=== PATIENT | female | born 1960 | race Caucasian/White ===

== ENCOUNTER 2020-11-30 11:24 | Outpatient (CLI) | payer OTHER, SELFPAY ==
--- NOTE | ~2020-11-30 | XR_ITS ---
EXAMINATION: XR foot LT standing 2V, XR foot RT standing 2V DATE: 11/30/2020 11:48 INDICATION: Rheumatoid arthritis with rheumatoid factor of multiple sites. TECHNIQUE: 1. Dorsoplantar and lateral views of the left foot were obtained. 2. Dorsoplantar and lateral views of the right foot were obtained. COMPARISON: None. FINDINGS: Alignment is normal at both feet. No fractures. Mild polyarticular osteoarthritis characterized by no nuniform joint space narrowing and marginal osteophyte formation at the left first metatarsophalangea l, bilateral fourth tarsal metatarsal and multiple bilateral interphalangeal joints. No erosions to s uggest an inflammatory arthritis such as rheumatoid. Moderate size bilateral plantar calcaneal spurs. Soft tissues are unremarkable. No ankle joint effusions. IMPRESSION: 1. Mild polyarticular osteoarthritis in the bilateral mid and forefeet. Reviewed, dictated and finalized at location A. KETTLE TENDER IMPRESSION: 1. Mild polyarticular osteoarthritis in the bilateral mid and forefeet.
--- NOTE | ~2020-11-30 | XR_ITS ---
EXAMINATION: HAND-SINGH ARTHRITIS 3+VIEWS DATE: 11/30/2020 11:47 INDICATION: Rheumatoid arthritis with rheumatoid factor of multiple sites. TECHNIQUE: Posteroanterior, lateral, and oblique views of the left and of the right hands as well as a ballcatchers view of both hands were obtained. COMPARISON: None. FINDINGS: Alignment is normal at both hands. No fractures. Prominent heterotopic ossicle versus loose osteochon dral body near the tip of the left ulnar styloid process. Symmetric pattern of mild relatively unifor m joint space narrowing at the bilateral fourth metacarpophalangeal joints without significant osteop hytosis but also without cortical erosions which remains equivocal for osteoarthritis versus rheumato id arthritis. There is also asymmetric pattern of mild polyarticular osteoarthritis characterized by nonuniform joint space narrowing and/or small marginal osteophytes involving the bilateral distal rad ioulnar, wrist, triscaphe, multiple carpal metacarpal and essentially all of the interphalangeal join ts. There does appear to be a small erosion along the ulnar side of the proximal articular surface of the right lunate. IMPRESSION: 1. Erosion at the right lunate and relatively uniform joint space narrowing without osteophytosis at the bilateral fourth metacarpophalangeal joints which would be consistent with given history of rheum atoid arthritis. 2. Additional mild polyarticular osteoarthritis with relatively symmetric distribution involving mult iple joints at the bilateral hands and wrists. Reviewed, dictated and finalized at location A. ENGINEER IMPRESSION: 1. Erosion at the right lunate and relatively uniform joint space narrowing wit hout osteophytosis at the bilateral fourth metacarpophalangeal joints which wou ld be consistent with given history of rheumatoid arthritis. 2. Additional mild polyarticular osteoarthritis with relatively symmetric distr ibution involving multiple joints at the bilateral hands and wrists.
== END 2020-11-30 11:25 | disposition home or self-care (01) ==
PROVIDERS: PCP Family Medicine; Visit Provider Internal Medicine
DX: Z11.59 Encounter for screening for other viral diseases (principal); M05.79 Rheumatoid arthritis with rheumatoid factor of multiple sites without organ or systems involvement; M19.042 Primary osteoarthritis, left hand; M19.041 Primary osteoarthritis, right hand; M19.072 Primary osteoarthritis, left ankle and foot; M19.071 Primary osteoarthritis, right ankle and foot
CPT/HCPCS: 73130; 73620

== ENCOUNTER 2021-12-19 14:49 | Outpatient (CLI) | payer OTHER, SELFPAY ==
--- NOTE | ~2021-12-19 | US_ITS ---
EXAMINATION: US thyroid EXAM DATE: 12/19/2021 15:23 INDICATION: Multinodular goiter. Prior biopsy on 07/09/2019 TECHNIQUE: Multiple grayscale and Doppler images of the thyroid were obtained (by a technologist who performed the scan) and subsequently reviewed. Individual nodules and recommendations may be reporte d in accordance with TI-RADS system as designated by the 2017 ACR White Paper TI-RADS committee. Gordy elation is made to thyroid ultrasound from outside institution dated 06/13/2019. FINDINGS: The right there are lobe measures 5.5 x 2.1 x 2.1 cm, the left measures 5.8 x 2.4 x 2.3 cm. Mildly di ffusely heterogeneous echogenicity with numerous thyroid nodules bilaterally. Many of these are cysti c. Most are subcentimeter. Largest right thyroid lobe nodule measures 1.2 x 1.0 x 1.1 cm, with interv al decrease in size. Largest left thyroid lobe nodule measures 1.0 x 1.3 x 1.3 cm, interval decrease in size but now appears more cystic than on prior study. IMPRESSION: Multinodular goiter with overall decrease in size of thyroid and multiple nodules. Reviewed, dictated and finalized at location G. OMER SUCCESS ADVOCATE IMPRESSION: Multinodular goiter with overall decrease in size of thyroid and mu ltiple nodules.
== END 2021-12-19 14:50 | disposition home or self-care (01) ==
PROVIDERS: PCP Family Medicine; Visit Provider Internal Medicine Endocrinology, Diabetes & Metabolism
DX: E04.2 Nontoxic multinodular goiter (principal)
CPT/HCPCS: 76536

== ENCOUNTER 2022-11-27 09:05 | Outpatient (CLI) | payer OTHER, SELFPAY ==
--- NOTE | ~2022-11-27 | US_ITS ---
EXAMINATION: US thyroid DATE: 11/27/2022 09:52 INDICATION: Multinodular goiter. TECHNIQUE: Multiple ultrasound images of the thyroid were obtained. COMPARISON: Ultrasound 12/19/2021, 06/13/2019, 07/09/2019 FINDINGS: The right thyroid lobe measures 6.2 x 2.9 x 3.0 cm. The left thyroid lobe measures 5.5 x 2.3 x 2.4 c m. In the right thyroid lobe, there is a 1.4 cm predominantly cystic nodule (TI-RADS TR1). In the ri ght thyroid lobe, there is a 1.2 cm solid, taller than wide, hypoechoic nodule with smooth margin and punctate echogenic foci (TR5). In the left thyroid lobe, there is a 1.4 cm predominantly cystic nodu le (TR1). In the left thyroid lobe, there is a 8 mm solid, hypoechoic, wider than tall nodule with sm ooth margin without echogenic foci (TR4). IMPRESSION: 1. Multinodular goiter. Ultrasound-guided fine-needle aspiration of the 1.2 cm right thyroid nodule i s recommended. Reviewed, dictated and finalized at location A. METHODS DEVELOPER IMPRESSION: 1. Multinodular goiter. Ultrasound-guided fine-needle aspiration of the 1.2 cm right thyroid nodule is recommended.
== END 2022-11-27 09:06 | disposition home or self-care (01) ==
PROVIDERS: PCP Family Medicine; Visit Provider Internal Medicine Endocrinology, Diabetes & Metabolism
DX: E04.2 Nontoxic multinodular goiter (principal)
CPT/HCPCS: 76536

== ENCOUNTER 2022-12-11 12:17 | Outpatient (CLI) | payer OTHER, SELFPAY ==
--- NOTE | ~2022-12-11 | US_ITS ---
EXAMINATION: US FNA w image guidance DATE: 12/11/2022 13:18 INDICATION: Thyroid nodule. TECHNIQUE: The procedure and its benefits and risks were discussed with the patient. Risks specifically discusse d included bleeding. The patient verbalized understanding of the risks and agreed to proceed. The nec k was prepped and draped in the usual sterile manner. 1% lidocaine was used for local anesthesia. 8 passes were made with a 25G needle into the lesion under ultrasound guidance. There were no immedia te complications. FINDINGS: Grayscale ultrasound images demonstrate needles advanced into a 1.2 cm nodule in right thyroid lobe f or biopsy. IMPRESSION: 1. Ultrasound-guided fine needle aspiration of a right thyroid nodule. Reviewed, dictated and finalized at location A. RATING STATION MECHANIC
== END 2022-12-11 12:18 | disposition home or self-care (01) ==
PROVIDERS: PCP Family Medicine; Visit Provider Internal Medicine Endocrinology, Diabetes & Metabolism
DX: E04.1 Nontoxic single thyroid nodule (principal)
CPT/HCPCS: 10005; 88173; 88305

== ENCOUNTER 2023-05-09 13:54 | Outpatient (CLI) | payer OTHER, SELFPAY | END 2023-05-09 13:55 | disposition home or self-care (01) | LOC: ANHAUDIO 13:55 | PROVIDERS: PCP Family Medicine; Visit Provider Otolaryngology | DX: H90.3 Sensorineural hearing loss, bilateral (principal) | CPT/HCPCS: 92557; 92567 ==

== ENCOUNTER 2024-02-21 08:52 | Day surgery (SDC) | payer OTHER, SELFPAY ==
[2024-01-30 09:07] VITALS: BMI 30.8
[2024-01-30 14:47] VITALS: BMI 31.2
[2024-02-21 09:13] VITALS: BP 161/98; PULSE 68; RESP 14; TEMP 36.5; O2SAT 100
--- NOTE | 2024-02-21 09:27 | WPDANESEPPF ---
Anes - Initial Pre Proc Eval Procedure: Operation Date: 02/21/24 10:30 Proposed Procedures p Screening Colonoscopy - Shimon Quintero MD Date/Time: 02/21/24 09:27 Surgeon: Shimon Quintero MD Pre Op Diagnosis: Neoplasm Screening Patient Data Age: 63 Gender: F Height: 1.6 m Weight: 75.65 kg Last Vital Signs Temp 36.5 C 02/21/24 09:13 Pulse 68 02/21/24 09:13 Resp 14 02/21/24 09:13 BP 161/98 H 02/21/24 09:13 Pulse Ox 100 02/21/24 09:13 O2 Del Method Room Air 02/21/24 09:13 Allergies Allergy/AdvReac Type Severity Reaction Status Date / Time Sulfa (Sulfonamide Allergy Unknown Hives Verified 02/21/24 09:09 Antibiotics) Home Medications Medication Instructions Recorded Confirmed Type naproxen sodium 220 mg tablet 220 mg PO .qd PRN arthritis 11/26/20 02/21/24 History (Aleve) turmeric root extract 500 mg 500 mg PO DAILY 11/26/20 02/21/24 History capsule vitamin B complex 1 tablet PO DAILY 11/26/20 02/21/24 History hydroxychloroquine 200 mg tablet 400 mg PO DAILY #60 tabs 01/28/21 02/21/24 Rx (Plaquenil) Patient hx anesthesia problems: none Family hx anesthesia problems: none Results Review: All pre-operative results and documents have been reviewed as part of the pre-operative evaluation. FORMERLY [facility], [facility] Past Medical History Medical History Encounter for screening for other viral diseases Rheumatoid arthritis with rheumatoid factor of multiple sites without organ or systems involvement (~11/2020) Thyroid disorder Surgical History Surgical History History of partial hysterectomy Family History Family History Mother Hypertension Uterine cancer Father Hypertension H/O heart bypass surgery COPD (chronic obstructive pulmonary disease) Sibling Hypertension Social History Social History Smoking status: Never smoker Alcohol intake: current Drinks per week: 1 Alcohol use details: beer Substance use: never Substance use type: does not use Lack of Transportation: No Lack of Food: Never True Current Housing: I Have Housing Concerned About Future Housing: No Difficulty Paying Gas/Electric Bills: No Difficulty Paying for Meds: No Currently Unemployed: No Education: Associate Degree Difficulty w/ Childcare or Family Care: No Living arrangements: with family Spiritual care concerns: No Anes - Eval Final PreProcedure Day of Procedure 02/21/24 09:27 Patient weight: overweight Heart: regular rate and rhythm Lungs: clear to auscultation Airway: Mallampati scale class II Neurological: alert and oriented Last oral intake: >/= 8 hours ASA classification: II Emergent: no Anesthetic plan: proceed Anesthesia type and monitoring: general GIVS and standard monitoring Results Review: All pre-operative results and documents have been reviewed as part of the pre-operative evaluation. Informed Consent: The patient's anesthetic plan and its attendant risks and benefits were discussed with the patient/family/POA. Questions were solicited and answers provided to the satisfaction of the patient/family/POA.
--- NOTE | 2024-02-21 09:30 | PM.HPGS ---
History of Present Illness History of Present Illness Consent: Risks, benefits, and alternatives have been discussed and questions answered. Patient agrees to proceed with procedure. Chief complaint: Neoplasm Screening Narrative: Deepti Stevens is a 63 year old female presents for screening colonoscopy. Patient's current weight appetite is are normal. She denies abdominal pain. Patient has had no bleeding. Family history is noncontributory Review of Systems Review of Systems: All systems reviewed & are unremarkable except as noted in HPI and below PMFSH Past Medical History Medical History Encounter for screening for other viral diseases Rheumatoid arthritis with rheumatoid factor of multiple sites without organ or systems involvement (~11/2020) Thyroid disorder Surgical History Surgical History History of partial hysterectomy Family History Family History Mother Hypertension Uterine cancer Father Hypertension H/O heart bypass surgery COPD (chronic obstructive pulmonary disease) Sibling Hypertension Social History Social History Smoking status: Never smoker Alcohol intake: current Drinks per week: 1 Alcohol use details: beer Substance use: never Substance use type: does not use Lack of Transportation: No Lack of Food: Never True Current Housing: I Have Housing Concerned About Future Housing: No Difficulty Paying Gas/Electric Bills: No Difficulty Paying for Meds: No Currently Unemployed: No Education: Associate Degree Difficulty w/ Childcare or Family Care: No Living arrangements: with family Spiritual care concerns: No Meds Home Medications and Allergies Home Medications Medication Instructions Recorded Confirmed Type naproxen sodium 220 mg tablet 220 mg PO .qd PRN arthritis 11/26/20 02/21/24 History (Aleve) turmeric root extract 500 mg 500 mg PO DAILY 11/26/20 02/21/24 History capsule vitamin B complex 1 tablet PO DAILY 11/26/20 02/21/24 History hydroxychloroquine 200 mg tablet 400 mg PO DAILY #60 tabs 01/28/21 02/21/24 Rx (Plaquenil) Allergies Allergy/AdvReac Type Severity Reaction Status Date / Time Sulfa (Sulfonamide Allergy Unknown Hives Verified 02/21/24 09:09 Antibiotics) Vital Signs Vital Signs - 24 hr 02/21/24 09:13 Temperature 97.7 F Pulse Rate 68 Respiratory Rate 14 Blood Pressure 161/98 H Pulse Oximetry 100 Oxygen Delivery Room Air Exam Narrative: Physical exam reveals patient to be alert. Vital signs stable. HEENT exam is unremarkable. Patient is anicteric. Lungs are clear to auscultation and to percussion. Heart is without murmur extra sounds. Abdomen bowel sounds are present soft nontender with no splenomegaly. Digital external rectal exam normal. Assessment and Plan Assessment and plan (1) Encounter for screening colonoscopy: Code(s): Z12.11 - Encounter for screening for malignant neoplasm of colon Status: Acute Assessment and Plan: Patient appears to be at average risk for colon polyps. Plan for screening colonoscopy today.
[2024-02-21] MEDS: LACTATED RINGERS 1,000 ML 150 ML IV CONT (09:50)
[2024-02-21 10:24] VITALS: BP 118/76; PULSE 60; RESP 15; O2SAT 97
[2024-02-21 10:29] VITALS: BP 103/64; PULSE 73; RESP 15; O2SAT 100
[2024-02-21 10:34] VITALS: BP 116/73; PULSE 62; RESP 15; O2SAT 97
--- NOTE | 2024-02-21 11:35 | WPDANESPN ---
Anes - Prog Note Post-Op Date/Time: 02/21/24 11:35 Cardiovascular status: normal Respiratory status: normal Airway patency: baseline Mental status: baseline Post-Op hydration status: normal Vital Signs: Last Vital Signs Temp 36.5 C 02/21/24 09:13 Pulse 62 02/21/24 10:34 Resp 15 02/21/24 10:34 BP 116/73 02/21/24 10:34 Pulse Ox 97 02/21/24 10:34 O2 Del Method Room Air 02/21/24 10:34 Pain Score (VAS): 0 I/O: Intake & Output 02/20/24 02/21/24 02/21/24 23:59 07:59 15:59 Intake Total 0 Balance 0 Patient Feedback: Patient satisfied with anesthetic care.
== END 2024-02-21 11:00 | disposition home or self-care (01) ==
PROVIDERS: PCP Family Medicine; Visit Provider Internal Medicine Gastroenterology
PROC: 0DJD8ZZ Inspection of Lower Intestinal Tract, Via Natural or Artificial Opening Endoscopic (ICD-10-PCS; CPT 45378; principal; 2024-02-21 10:30)
DX: Z12.11 Encounter for screening for malignant neoplasm of colon (principal); K57.30 Diverticulosis of large intestine without perforation or abscess without bleeding; K64.8 Other hemorrhoids
CPT/HCPCS: 45378

== ENCOUNTER 2024-07-09 14:54 | Outpatient (CLI) | payer OTHER, SELFPAY ==
--- NOTE | ~2024-07-09 | MM_ITS ---
EXAMINATION: MM screening bridget BI w trisha HISTORY: Screening TECHNIQUE: Craniocaudal and mediolateral oblique 3-D tomosynthesis images were obtained and synthetic 2-D images were generated. CAD analysis was submitted and interpreted. COMPARISON: No prior mammogram is available for comparison at this institution. BREAST PARENCHYMAL COMPOSITION: Dense: The breasts are heterogeneously dense, which may obscure small masses FINDINGS: There is no evidence of suspicious mass, calcification, or architectural distortion to sugg est malignancy in either breast. There has been no suspicious interval change. IMPRESSION: 1. No mammographic evidence of malignancy. 2. Recommend routine screening mammography in one year. BI-RADS Category 1: Negative Reviewed, dictated and finalized at location B.
== END 2024-07-09 14:55 | disposition home or self-care (01) ==
LOC: ANHIMG 14:55
PROVIDERS: PCP Family Medicine; Visit Provider Family Medicine
DX: Z12.31 Encounter for screening mammogram for malignant neoplasm of breast (principal)
CPT/HCPCS: 77063; 77067

== ENCOUNTER 2025-07-31 08:57 | Outpatient (CLI) | payer OTHER, SELFPAY ==
--- OUTSIDE RECORDS SUMMARY | 2024-07-30 10:15 | XMS_ITS ---
Author Organization [facility] [place] Address [address] [facility] [address] [place] [address] Care Team Providers Care Auto Mechanics Instructor Name Role Phone Shelli Portillo Primary Care Provider Unav ailable Nannette Gresham Unavailable [phone] REASON FOR VISIT yd/6 month follow up/flc Encounters Encounter Location Date Provider Diagnosis [facility] [address] [facility] [address] [place] [address] 07/30/2024 Nannette Gresham Plan Of Treatment Next Appt Details Provider Name:Nannette Gresham, 10/05 11:45:00 AM, [address] [facility] [address], [place], [address], Progress Notes * Deepti ROBERTS ADOB: (64 yo F)Acc No.[id number]:07/30/2024 Progress Notes Patient: Deepti ROMERO Alison Appointment Provider: Ko GRESHAM MD :1960 A ge:63 Y S ex:Female Date:07/30/2024 Address:[address] [place], [place] [id number] Pcp:Shelli Portillo Subjective: * Chief Complaints: * 1 . Yd/6 month follow up/flc. * Medical History: Objective: * Vitals: Assessment: Plan: * Treatment: * Billing Information: * Visit Code: * Procedure Codes: * Electronic signature of Nannette Gresham MD on 07/31/2025 at 09:18 AM CDT Sign off status: Pending * Appointment Provider: Ko GRESHAM MD Date: 0 07/30/2024 Generated for Yvon birmingham/Rei/Katie on: 0 07/31/2025 09:18 AM CDT
--- OUTSIDE RECORDS SUMMARY | 2025-07-30 06:45 | XMS_ITS ---
Author Organization [facility] [place] Address [address] [facility] [address] [address] [place] [address] Care Team Providers Care Fiscal Assistant Name Role Phone AmadoRasheedShelli Primary Care Provider Unav ailable Nannette Gresham Unavailable [phone] Allergies Allergen (clinical drug ingredient) Drug/Non Drug Allergy documented on EMR Reaction Allergy Type Onset Date Status Substance with sulfonamide structure and antibacterial mechanism of action (substance) Sulfa Antibiotics Unknown Drug Allergy 02/09/2021 Active REASON FOR VISIT yd/6 month follow up/flc, RA Medications Medication SIG (Take, Route, Frequency, Duration) Notes Start Date End Date Status Hydroxychloroquine Sulfate 200 MG 2 Orally daily; Duration: 90 days Active Aleve 220 MG take 1 capsule by oral route once Oral 1 Active Folic Acid 1 MG 1 tablet Orally Once a day; Duration: 30 days 07/30/2025 01/26/2026 Active Osteo Bi-Flex Joint Shield Active Methotrexate Sodium 2.5 MG 4 Orally week ly; Duration: 30 days 07/30/2025 Active Vitamin B Complex take 1 tablet by ora l route once Oral 1 Active Turmeric 500 mg bid oral Acti ve Vital Signs Temperature 98.1 degrees Fahrenheit 07/30/20 25 Blood pressure systolic 132 mm Hg 07/30/20 25 Blood pressure diastolic 88 mm Hg 025 Heart Rate 76 /min 07/30/2025 Height 63 in 07/30/2025 Weight 168.1 lbs 07/30/2025 BMI 29.77 kg/m2 07/30/2025 Oximetry 95 % 07/30/2025 Height-cm 160.02 cm 07/30/2025 Weight-kg 76.25 kg 07/30/2025 Encounters Encounter Location Date Provider Diagnosis [facility] [address] [facility] [address] [place] [address] 07/30/2025 Nannette Gresham Other rheumatoid arthritis with rheumatoid factor of multiple sites M05.89 ; TIMA positive R76.8 and High risk medication use Z79.899 Assessments Encounter Date Diagnosis (ICD Code) Assessment Notes Treatment Notes Treatment Clinical Notes Section Notes 07/30/2025 Other rheumatoid arthritis with rheumatoid factor of multiple sites (ICD-10 - M05.89) symptomatic, start MTX 10mg/wk, continue plaquenil, labs today, return in 2 months 07/30/2025 TIMA positive (ICD-10 - R76.8) symptomatic, start MTX 10mg/wk, continue plaquenil, labs today, return in 2 months 07/30/2025 High risk medication use (ICD-10 - Z79.899) symptomatic, start MTX 10mg/wk, continue plaquenil, labs today, return in 2 months Plan Of Treatment Medication Medication Name Sig Start Date Stop Date Notes Hydroxychloroquine Sulfate 200 MG 2 Oral ly daily; Duration: 90 days Folic Acid 1 MG 1 tablet Orally Once a day; Duration: 30 days 07/30/2025 01/26/2026 Methotrexate Sodium 2.5 MG 4 Orally week ly; Duration: 30 days 07/30/2025 Pending Test Test Name Order Date CRP (C-REACTIVE PROTEIN) 07/30/2025 RHEUMATOID FACTOR (RF), QUANTITATIVE 09/2025 CK 07/30/2025 CMP(COMPREHENSIVE METABOLIC PANEL) 07/30 CBC W/DIFF 07/30/2025 SEDIMENTATION RATE, ESR 07/30/2025 CYCLIC CITRULLINATED PEPTIDE (CCP) AB, I gG/IgA 07/30/2025 SSA/SSB ANTIBODY (SJOGREN'S) 07/30/2025 TIMA SCREEN/REFLEX TITER/PATTERN 07/30/20 25 Next Appt Details Follow Up: 2 Months, Reason: Provider Name:Nannette Gresham, 10/05 11:45:00 AM, [address] [facility] [address], [place], [address], Progress Notes * Deepti ROBERTS ADOB: (64 yo F)Acc No.[id number]:07/30/2025 Progress Notes Patient: Deepti ROMERO Appointment Provider: Ko GRESHAM MD :1960 A ge:64 Y S ex:Female Date:07/30/2025 Address:[address] [place], [place] [id number] Pcp:Shelli Portillo Subjective: * Chief Complaints: * Y d/6 month follow up/flcRA * HPI: G eneral Follow up: on HCQ 400mg/day, helping some, h ands ache, wrists bother her too, no joint swelling, am stiffness: 30-60 minutes 07/2022, TIMA (-), ESR, CRP, C3 and C4 normal 04/2021, RF 15, TIMA 1:80 (homogeneous), cascade (-), ESR and CRP normal January 20, 2021, ESR 41, CRP 15.5, anti-SSA/SSB (-), hep B/C (-) 10/2020, RF 19 05/2020, RF 15 11/30/2020, right wrist X-rays: erosion at right lunate, joint space narrowing at nevaeh 4th MCPs, nevaeh foot X-rays: mild OA eye exam: 03/07/2024. * ROS: G eneral / Constitutional: Patient denies f tatum, chills. P atient complains of?fatigue. M usculoskeletal: Patient complains of s ee HPI. S kin: Patient denies r lilia. * Medical History: * Surgical History: T hyroid Biopsy; [id number]; 2021-02-09 * Hospitalization/Major Diagno stic Procedure: * Family History: M igrated Family History: Brain Cancer , Uterine cancer . * Social History: M igrated Social History: M igrated Social History: :: 2 Children , Exercise :: Walks :: note : 09/14/2021 -- walks on somedays, Marital Status :: , Substance Use :: Alcohol,socially :: Light :: note ::: Quantity :: 2 beers/week , Substance Use :: Tobacco :: Never. * Medications: T akingVitamin B Complex Tablet take 1 tablet by oral route once Oral 1 Turmeric 500 mg capsule bid oral Osteo Bi-Flex Joint Shield Aleve 220 MG Capsule take 1 capsule by oral route once Oral 1 Hydroxychloroquine Sulfate 200 MG Tablet 2 Orally daily Taking Vitamin B Complex Tablet take 1 tablet by oral route once Oral 1 Taking Turmeric 500 mg capsule bid oral Taking Osteo Bi-Flex Joint Shield Taking Aleve 220 MG Capsule take 1 capsule by oral route once Oral 1 Taking Hydroxychloroquine Sulfate 200 MG Tablet 2 Orally daily DiscontinuedThyroid Discontinued Thyroid * Allergies: S ulfa Antibiotics: Allergy - Onset Date 02/09/2021no[Allergies Verified] Objective: * Vitals: B P:132/88mm Hg, HR:76/min, Temp:98.1F, Oxygen sat %:95%, Wt:168.1lbs, Wt-k.25 kg, Ht: 63 in, Ht-cm: 160.02 cm, BMI:29.77Index, Body Surface Area: 1.84. * Examination: G eneral Examination: General appearance: a lert, well-nourished and in no acute distress. Head: n ormocephalic, atraumatic. Eyes: n ormal. Skin: n o rash. Lungs: r espiratory effort normal. N eurology: Speech: n ormal. P sychiatry: Affect / mood: a ppropriate. R heumatology: R wrist mildly tender, no swelling. Assessment: * Assessment: 1. O ther rheumatoid arthritis with rheumatoid factor of multiple sites - M05.89 (Primary) 2 . A NA positive - R76.8 3 . H igh risk medication use - Z79.899 s ymptomatic, start MTX 10mg/wk, continue plaquenil, labs today, return in 2 months Plan: * Treatment: * Procedure Codes: * Follow Up: 2 Months * Billing Information: * Visit Code: 28690 Office Visit, Est Pt., Level 4. * Procedure Codes: * Sign off status: Completed true * Appointment Provider: Ko GRESHAM MD Date: 0 07/30/2025 Generated for Yvon birmingham/Rei/Shannanitting on: 0 07/31/2025 09:18 AM CDT History and Physical Notes * HPI (History of Present Illness) Category Sub-Category Detail Notes Category Not es General Follow up on HCQ 400mg/day, helping some, hands ache, wrists bother her too, no joint swelling, am stiffness: 30-60 minutes 07/2022, TIMA (-), ESR, CRP, C3 and C4 normal 04/2021, RF 15, TIMA 1:80 (homogeneous), cascade (-), ESR and CRP normal January 20, 2021, ESR 41, CRP 15.5, anti-SSA/SSB (-), hep B/C (-) 10/2020, RF 19 05/2020, RF 15 11/30/2020, right wrist X-rays: erosion at right lunate, joint space narrowing at nevaeh 4th MCPs, nevaeh foot X-rays: mild OA eye exam: 03/07/2024 Examination Category Sub-Category Detail Notes Category Not es Rheumatology R wrist mildly tender, no swelling Neurology Speech: normal Psychiatry Affect / mood: appropriate General Examination General appearance: alert, w ell-nourished and in no acute distress Head: normocephalic, atrau matic Eyes: normal Lungs: respiratory effort n ormal Skin: no rash
--- NOTE | ~2025-07-31 | MM_ITS ---
EXAMINATION: MM screening bridget BI w trisha HISTORY: Screening TECHNIQUE: Craniocaudal and mediolateral oblique 3-D tomosynthesis images were obtained and synthetic 2-D images were generated. CAD analysis was submitted and interpreted. COMPARISON: 07/09/2024 BREAST PARENCHYMAL COMPOSITION: The breasts are heterogeneously dense, which may obscure small masses. FINDINGS: There is no evidence of suspicious mass, calcification, or architectural distortion to suggest malignancy in either breast. IMPRESSION: 1. No mammographic evidence of malignancy. 2. Recommend routine screening mammography in one year. BI-RADS Category 1: Negative Reviewed, dictated and finalized at location B.
--- OUTSIDE RECORDS SUMMARY | 2025-07-31 09:18 | XMS_ITS | Clinical Summary ---
Author Organization [facility] Address [address] [place] [address] Care Team Providers Care Police Patrol Officer Name Role Phone Unknown, Notinfile Primary Care Provider Unavail able Social History Tobacco Use Types Packs/Day Years Used Date Smoking Tobacco: Never Assessed Personal Safety Answer Date Recorded Getting School Help Needed Not on file 02/01 Comments Unknown Sex and Gender Information Value Date Recorded Sex Assigned at Not on file Legal Sex Female 9:59 PM [employer] Gender Identity Not on file Sexual Orientation Not on file Plan of Treatment Health Maintenance Due Date Last Done Comments Cervical Cancer Screening 1960 Colon Cancer Screening-Colonoscopy 1960 Depression Screening 1960 Hepatitis C Screening 1960 DTaP/Tdap/Td Vaccine (1 - Tdap) 1971 Hepatitis B Screening 1978 Regular Well Visit/Exam 18-64 1978 Zoster Vaccine (1 of 2) 2010 Breast Cancer Screening-Mammogram 01/27/2014 01/27/2013 Covid-19 Vaccine (4 - 2024-2 6 season) 2025 10/29/2021, 02/21/2021, 01/30/2021 Influenza Vaccine (#1) 2025 Pneumococcal vaccine <65 Aged Out No longer eligible based on patient's age to complete this topic Procedures Procedure Name Priority Date/Time Associated Diagnosis Comments SCREENING MAMMOGRAM Routine 01/27/2013 1 :09 PM CDT from Last 3 Months or Most Recently Relevant to Health Maintenance Results * Screening Mammogram (01/27/2013 1:09 PM CDT) Anatomical Region Laterality Modality Breast N/A Mammography 01/27/2013 1:09 PM CDT Narrative 01/28/2013 4:41 PM CDT JOYCELYN SINGH MD, PHD FINAL REPORT ACC# Date Time Exam [id number] Jan 27, 2013 13:09:00 [facility] [id number] Screening Mamm Bilat Technologist(s): Kadie Wadsworth; ; EXAMINATION: Mammogram Findings: A Full-Field Digital Screening Mammogram was performed. Views obtained: bilateral craniocaudal; bilateral mediolateral oblique. Computer Aided Detection was performed with [facility] 1.3 version 9.3. The present examination has been compared to prior imaging studies performed at [facility] on 12/13/2011, 11/26/2007 and 09/15/2002. The breasts are heterogeneously dense which could obscure a lesion on mammography. There is no suspicious abnormality in either breast. IMPRESSION: Annual screening mammography is recommended. OVERALL FINAL ASSESSMENT: BI-RADS CATEGORY 1: Negative. Requested By: Referral,Self Dictated By: JOYCELYN SINGH MD, PHD on Jan 28 2013 4:41P This document has been electronically signed by: JOYCELYN SINGH MD, PHD on Jan 28 2013 4:41P Procedure Note Provider, MD Radha - 03/12/2017 JOYCELYN SINGH MD, PHD FINAL REPORT ACC# Date Time Exam [id number] Jan 27, 2013 13:09:00 [facility] [id number] Screening Mamm Bilat Technologist(s): Kadie Wadsworth; ; EXAMINATION: Mammogram Findings: A Full-Field Digital Screening Mammogram was performed. Views obtained: bilateral craniocaudal; bilateral mediolateral oblique. Computer Aided Detection was performed with [facility] 1.3 version 9.3. The present examination has been compared to prior imaging studies performed at [facility] on 12/13/2011, 11/26/2007 and 09/15/2002. The breasts are heterogeneously dense which could obscure a lesion on mammography. There is no suspicious abnormality in either breast. IMPRESSION: Annual screening mammography is recommended. OVERALL FINAL ASSESSMENT: BI-RADS CATEGORY 1: Negative. Requested By: Referral,Self Dictated By: JOYCELYN SINGH MD, PHD on Jan 28 2013 4:41P This document has been electronically signed by: JOYCELYN SINGH MD, PHD on Jan 28 2013 4:41P us Historical Provider MD [facility] MAMMO PROCEDURES Lynette l Result from Last 3 Months or Most Recently Relevant to Health Maintenance Insurance [employer] OPEN ACCESS [employer] Police Patrol Officer Relationship Specialty Start Date End Date Unknown, Notinfile PCP - General 02/01/18
--- OUTSIDE RECORDS SUMMARY | 2025-07-31 09:18 | XMS_ITS | Patient Health Record ---
Author Organization [facility] [place] Address [address] [place] [address] Care Team Providers Care Tennis Court Attendant Name Role Phone Shelli Portillo Primary Care Provider Unastanley Nannette Gamble Unavailable [phone] Allergies Allergen (clinical drug ingredient) Drug/Non Drug Allergy documented on EMR Reaction Allergy Type Onset Date Status Substance with sulfonamide structure and antibacterial mechanism of action (substance) Sulfa Antibiotics Unknown Drug Allergy 02/09/2021 Active Reason For Referral No Information Medications Medication SIG (Take, Route, Frequency, Duration) Notes Start Date End Date Status Methotrexate Sodium 2.5 MG 4 Orally week ly; Duration: 30 days 07/30/2025 Active Hydroxychloroquine Sulfate 200 MG 2 Orally daily; Duration: 90 days Active Aleve 220 MG take 1 capsule by oral route once Oral 1 Active Vitamin B Complex take 1 tablet by ora l route once Oral 1 Active Turmeric 500 mg bid oral Acti ve Folic Acid 1 MG 1 tablet Orally Once a day; Duration: 30 days 07/30/2025 01/26/2026 Active Osteo Bi-Flex Joint Shield Active Problems Problem Type SNOMED Code ICD Code Onset Dates Problem Status W/U Status Risk Notes Problem Rheumatoid arthritis (83282136) 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.89) Active confirmed Vital Signs Heart Rate 76 /min 07/30/2025 Temperature 98.1 degrees Fahrenheit 07/30/2025 Blood pressure diastolic 88 mm Hg 07/30/2025 Oximetry 95 % 07/30/2025 Height-cm 160.02 cm 07/30/2025 Weight-kg 76.25 kg 07/30/2025 Height 63 in 07/30/2025 Blood pressure systolic 132 mm Hg 07/30/2025 Weight 168.1 lbs 07/30/2025 BMI 29.77 kg/m2 07/30/2025 Encounters Encounter Location Date Provider Diagnosis [facility] [address] [address] [place] [address] 01/27/2025 Nannette Rouse Other rheumatoid arthritis with rheumatoid factor of multiple sites M05.89 ; TIMA positive R76.8 and High risk medication use Z79.899 [facility] [address] [facility] [place] [address] 07/30/2025 Nannette Rouse Other rheumatoid arthritis with rheumatoid factor of multiple sites M05.89 ; TIMA positive R76.8 and High risk medication use Z79.899 Assessments Encounter Date Diagnosis (ICD Code) Assessment Notes Treatment Notes Treatment Clinical Notes Section Notes 01/27/2025 Other rheumatoid arthritis with rheumatoid factor of multiple sites (ICD-10 - M05.89) mildly symptomatic, increase plaquenil to 400mg/day, return in 6 months 07/30/2025 Other rheumatoid arthritis with rheumatoid factor of multiple sites (ICD-10 - M05.89) symptomatic, start MTX 10mg/wk, continue plaquenil, labs today, return in 2 months 07/30/2025 TIMA positive (ICD-10 - R76.8) symptomatic, start MTX 10mg/wk, continue plaquenil, labs today, return in 2 months 01/27/2025 TIMA positive (ICD-10 - R76.8) mildly symptomatic, increase plaquenil to 400mg/day, return in 6 months 01/27/2025 High risk medication use (ICD-10 - Z79.899) mildly symptomatic, increase plaquenil to 400mg/day, return in 6 months 07/30/2025 High risk medication use (ICD-10 - Z79.899) symptomatic, start MTX 10mg/wk, continue plaquenil, labs today, return in 2 months Plan Of Treatment Pending Test Test Name Order Date CRP (C-REACTIVE PROTEIN) 07/30/2025 RHEUMATOID FACTOR (RF), QUANTITATIVE 09/2025 CK 07/30/2025 CMP(COMPREHENSIVE METABOLIC PANEL) 07/30 CBC W/DIFF 07/30/2025 SEDIMENTATION RATE, ESR 07/30/2025 CYCLIC CITRULLINATED PEPTIDE (CCP) AB, I gG/IgA 07/30/2025 SSA/SSB ANTIBODY (SJOGREN'S) 07/30/2025 TIMA SCREEN/REFLEX TITER/PATTERN 07/30/20 25 Next Appt Details Provider Name:Nannette Rouse, 10/05 11:45:00 AM, [address], [place], [address], Insurance Providers Payer Name Payer Address Payer Phone Subscriber Number Group Number Insured Name Patient Relationship to Insured Coverage Start Date Coverage End Date Cigna Ppo [address] Tuan bowers, [place] [address] [phone] [id number] Deepti Stevens Self - patient is the insured Medical (General) History Medical History History ICD Code Basal cell carcinoma; Rheumatoid arthritis; Thyroid disease; Surgical History Surgery Date(Month/Year) Thyroid Biopsy; 2021-02-09 Hysterectomy; 2021-02-09
--- OUTSIDE RECORDS SUMMARY | 2025-07-31 09:18 | XMS_ITS | Patient Health Record ---
Author Organization [facility] Address [address] [facility] [address] [place], [place] [id number] Care Team Providers Care Light Air Defense Artillery Crewmember Name Role Phone Shelli Ojeda Unavailable Unavailabl MELY Arias Unavailable [phone] Allergies Allergen (clinical drug ingredient) Drug/Non Drug Allergy documented on EMR Reaction Allergy Type Onset Date Status Substance with sulfonamide structure and antibacterial mechanism of action (substance) Sulfa Antibiotics Unknown Drug Allergy Active Reason For Referral No Information Medications Medication SIG (Take, Route, Frequency, Duration) Notes Start Date End Date Status Meloxicam 15 MG 1 tablet Orally Once a day; Duration: 30 days Active Hydroxychloroquine Sulfate Active Encounters Encounter Location Date Provider Diagnosis [facility] [address] [place] [id number] 08/04/2024 MELY HARRIS Peroneal tendinitis, left leg M76.72 ; Calcaneal spur, left foot M77.32 ; Left foot pain M79.672 ; Primary osteoarthritis, left ankle and foot M19.072 ; Other specified rheumatoid arthritis, right ankle and foot M06.871 and Other specified rheumatoid arthritis, left ankle and foot M06.872 [facility] [address] [place] [address] [id number] 09/01/2024 MELY HARRIS Peroneal tendinitis, left leg M76.72 ; Calcaneal spur, left foot M77.32 ; Left foot pain M79.672 ; Primary osteoarthritis, left ankle and foot M19.072 ; Other specified rheumatoid arthritis, right ankle and foot M06.871 and Other specified rheumatoid arthritis, left ankle and foot M06.872 Assessments Encounter Date Diagnosis (ICD Code) Assessment Notes Treatment Notes Treatment Clinical Notes Section Notes 08/04/2024 Peroneal tendinitis, left leg (ICD-10 - M76.72) Peroneal Tendonitis: I discussed anti-inflammatory treatment options and various means of immobilization with the patient. I educated the patient on icing and stretching, supportive shoegear, and the use of orthotic devices and bracing. Discontinue Aleve. Voltaren Gel: Recommend that the patient obtain over the counter topical Voltaren Gel 1%. I educated the patient on its use. 08/04/2024 Calcaneal spur, left foot (ICD-10 - M77.32) Heel Spur: I discussed anti-inflammatory treatment options and various means of pronation control with the patient. I educated the patient on icing and stretching, supportive shoegear, and the use of orthotic devices. Continue PowerStep inserts and supportive shoes 09/01/2024 Peroneal tendinitis, left leg (ICD-10 - M76.72) Peroneal Tendonitis: I discussed anti-inflammatory treatment options and various means of immobilization with the patient. I educated the patient on icing and stretching, supportive shoegear, and the use of orthotic devices and bracing. Discontinue Aleve. Voltaren Gel: Recommend that the patient obtain over the counter topical Voltaren Gel 1%. I educated the patient on its use. 09/01/2024 Calcaneal spur, left foot (ICD-10 - M77.32) Heel Spur: I discussed anti-inflammatory treatment options and various means of pronation control with the patient. I educated the patient on icing and stretching, supportive shoegear, and the use of orthotic devices. Continue PowerStep inserts and supportive shoes 09/01/2024 Left foot pain (ICD-10 - M79.672) 08/04/2024 Left foot pain (ICD-10 - M79.672) 08/04/2024 Primary osteoarthritis, left ankle and foot (ICD-10 - M19.072) Arthritis, Osteo: I discussed anti-inflammatory treatment options and various means of immobilization with the patient. I educated the patient on icing and stretching, supportive shoegear, and the use of orthotic devices and bracing. 09/01/2024 Primary osteoarthritis, left ankle and foot (ICD-10 - M19.072) Arthritis, Osteo: I discussed anti-inflammatory treatment options and various means of immobilization with the patient. I educated the patient on icing and stretching, supportive shoegear, and the use of orthotic devices and bracing. 08/04/2024 Other specified rheumatoid arthritis, right ankle and foot (ICD-10 - M06.871) Arthritis, Rheumatoid: I discussed anti-inflammatory treatment options and various means of immobilization with the patient. I educated the patient on icing and stretching, supportive shoegear, and the use of orthotic devices and bracing. 09/01/2024 Other specified rheumatoid arthritis, right ankle and foot (ICD-10 - M06.871) Arthritis, Rheumatoid: I discussed anti-inflammatory treatment options and various means of immobilization with the patient. I educated the patient on icing and stretching, supportive shoegear, and the use of orthotic devices and bracing. 09/01/2024 Other specified rheumatoid arthritis, left ankle and foot (ICD-10 - M06.872) 08/04/2024 Other specified rheumatoid arthritis, left ankle and foot (ICD-10 - M06.872) Plan Of Treatment No Information Insurance Providers Payer Name Payer Address Payer Phone Subscriber Number Group Number Insured Name Patient Relationship to Insured Coverage Start Date Coverage End Date [employer] [address] [place] [phone] [id number] Deepti Roberts Self - patient is the insured Medical (General) History Medical History History ICD Code Arthritis Gout rheumatoid arthritis
== END 2025-07-31 08:58 | disposition home or self-care (01) ==
LOC: ANHFOHIMG 08:59
PROVIDERS: PCP Family Medicine; Visit Provider Family Medicine
DX: Z12.31 Encounter for screening mammogram for malignant neoplasm of breast (principal)
CPT/HCPCS: 77063; 77067